=== PATIENT | female | born 1995 | race Caucasian/White ===

== ENCOUNTER → 2016-07-19 | Outpatient (CLI) | payer OTHER ==
[~2016-07-19] MED LIST: ONDA4TAB7 SL
[2016-07-19 12:27] LABS: CHOLESTEROL/HDL RATIO 1.9; THYROID STIMULATING HORMONE 1.32 uIu/ml (0.300-4.500)
[2016-07-19 12:35] LABS: CALCULATED INSULIN SENSITIVITY 0.353; GLUCOSE LOG 1.9138; INSULIN FASTING 8.3 mU/L (3-25); INSULIN LOG 0.9191
== END | disposition home or self-care (01) ==
LOC: C.LAB1850 10:31
PROVIDERS: ATTEND Obstetrics & Gynecology
DX: N92.6 Irregular menstruation, unspecified (principal)